=== PATIENT | male | born 1945 | race Caucasian/White ===

== ENCOUNTER 2018-07-28 08:22 | Emergency (ER) | payer OTHER, MEDICARE ==
[~2018-07-28] VITALS: Ht 175.3 cm; Wt 109.0 kg
[~2018-07-28 08:22] MED LIST: ALLO100T PO; COU4T PO; DILT240C94 PO; DOCU100C40 PO; FLO0.4C PO; FURO80TA87 PO; OLME40TA13 PO; POTA20TA39 PO; TADA5TAB2 PO
[2018-07-28 08:41] LABS: BASOPHILS % (AUTO) 0.3 % (0-1); EOSINOPHILS # (AUTO) 0.1 X10'3 (0-0.9); EOSINOPHILS % (AUTO) 1.4 % (0-6); HEMATOCRIT 47.2 % (42.0-52.0); LYMPHOCYTES # (AUTO) 0.7 X10'3 (1.1-4.8); LYMPHOCYTES % (AUTO) 7.9 % (21-51); MEAN CORPUSCULAR HEMOGLOBIN 34.3 PG (27.0-31.0); MEAN CORPUSCULAR HGB CONC 33.9 % (33.0-36.5); MEAN CORPUSCULAR VOLUME 101.3 FL (78-98); MEAN PLATELET VOLUME 9.5 FL (7.4-10.4); MONOCYTES # (AUTO) 0.5 X10'3 (0-0.9); MONOCYTES % (AUTO) 6.1 % (2-12); NEUTROPHILS # (AUTO) 7.6 X10'3 (1.8-7.7); NEUTROPHILS % (AUTO) 84.3 % (42-75); PLATELET COUNT 143 X10'3 (140-440); RED BLOOD COUNT 4.66 X10'6 (4.70-6.10)
[2018-07-28 08:52] LABS: INR 1.1 INR; PARTIAL THROMBOPLASTIN TIME 31 SECONDS (22-32); PROTHROMBIN TIME 10.8 SECONDS (9.0-12.0)
[2018-07-28 08:53] LABS: ALANINE AMINOTRANSFERASE 25 U/L (12-78); ALBUMIN 3.8 G/DL (3.4-5.0); ALBUMIN/GLOBULIN RATIO 0.9 (1.1-1.5); ALKALINE PHOSPHATASE 132 IU/L (46-116); ANION GAP 9 (8-16); ASPARTATE AMINO TRANSFERASE 14 U/L (10-37); BILIRUBIN,TOTAL 0.9 MG/DL (0.1-1.0); BLOOD UREA NITROGEN 19 MG/DL (7-18); CALCIUM 9.7 MG/DL (8.5-10.1); CHLORIDE 97 MMOL/L (99-107); CREATININE 1.27 MG/DL (0.60-1.10); GLUCOSE 106 MG/DL (70-104); POTASSIUM 4.3 MMOL/L (3.5-5.1); SODIUM 135 MMOL/L (135-145); TOTAL CARBON DIOXIDE 29.3 MMOL/L (24-32); TOTAL PROTEIN 8.2 G/DL (6.4-8.2); eGFR 55 ML/MIN
[2018-07-28] MEDS ORDERED: COU5T PO ×2 (08:53)
[2018-07-28] MEDS ORDERED: PRED5TAB PO (08:55)
[2018-07-28] MEDS ORDERED: HYDR2TAB28 PO (09:00)
[2018-07-28 10:10] LABS: D-DIMER 1.32 MG/L FEU (0-0.50)
[2018-07-28] MEDS ORDERED: iohexol 350MG/ML 100ml bottle IV ONE (10:32)
[2018-07-28] MEDS ORDERED: morphine 4 MG/ML inj SYRINge IV ONE (11:10)
[2018-07-28] MEDS ORDERED: HYDR-3965 PO (12:23)
[2018-07-28 12:47] VITALS: BP 139/87
== END 2018-07-28 12:40 | disposition home or self-care (01) ==
LOC: ER 08:22
DX: R06.02 Shortness of breath (principal); R60.0 Localized edema; J44.9 Chronic obstructive pulmonary disease, unspecified; G89.29 Other chronic pain; I48.91 Unspecified atrial fibrillation; Z98.890 Other specified postprocedural states; Z79.899 Other long term (current) drug therapy; Z79.01 Long term (current) use of anticoagulants
CPT/HCPCS: 36415; 71045; 71275; 80053; 83880; 84484; 85025; 85379; 85610; 85730; 93005; 96374; 99285; J2270; Q9967